=== PATIENT | male | born 1995 | race Hispanic/Latino ===

== ENCOUNTER 2018-11-10 04:20 | Emergency (ER) | payer OTHER ==
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
--- NOTE | 2018-11-10 09:41 | RAD REPORT ---
EXAM DESCRIPTION: Susie Judd (2 Views)11/10/2018 6:17 am CLINICAL HISTORY: Chest pain COMPARISON: None FINDINGS: The lungs appear clear of acute infiltrate. The heart is normal size IMPRESSION: No acute abnormalities displayed
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
== END 2018-11-10 07:05 | disposition home or self-care (01) ==
LOC: ER 04:20
DX: S06.0X0A Concussion without loss of consciousness, initial encounter (principal); S20.229A Contusion of unspecified back wall of thorax, initial encounter; V49.40XA Driver injured in collision with unspecified motor vehicles in traffic accident, initial encounter; Z72.0 Tobacco use
CPT/HCPCS: 70450; 71046; 99283